=== PATIENT | female | born 1940 | race Caucasian/White ===

== ENCOUNTER 2020-03-30 12:37 | Outpatient (CLI) | payer MEDICARE, BC ==
[~2020-03-30] VITALS: Ht 182.9 cm; Wt 63.5 kg
[2020-03-30 13:11] LABS: TOTAL HEMOGLOBIN 14.7 G/dl (12.0-16.0)
[2020-03-30] MEDS ORDERED: albuterol 2.5 MG/3 ML nebule NEB ONE (13:20)
== END 2020-03-30 23:59 | disposition home or self-care (01) ==
LOC: RT 12:37
PROVIDERS: ATTEND Internal Medicine Pulmonary Disease
DX: J44.9 Chronic obstructive pulmonary disease, unspecified (principal); R05 Cough
CPT/HCPCS: 85018; 94060; 94727; 94729; 94760

== ENCOUNTER 2023-05-24 11:46 | Day surgery (SDC) | payer MEDICARE, BC ==
[~2023-05-24] VITALS: Ht 152.4 cm; Wt 47.5 kg
[2023-05-24] VITALS (15 sets, daily range): BP systolic 109–176; BP diastolic 46–102; PULSE 58–87; RESP 15–20; TEMP 97.9; O2SAT 92–98
[~2023-05-24 11:46] MED LIST: LIDOCAINE 4% (40MG/ML) topical solution 50ml **BRONCH ONLY ONE; epiNEPHrine 1 MG/ML 1 ml ampule **BRONCH ONLY ONE; lidocaine 2% viscous 15 ML cup ***bronch room only MM ONE; phenylephrine 1% Nasal spray (extra-strength) 15 ML bottle **bronch room NS ONE
[2023-05-24] MEDS ORDERED: CELE200C PO (12:38)
[2023-05-24] MEDS ORDERED: AMIT25TA10 PO (12:38)
[2023-05-24] MEDS ORDERED: LEVO125T PO (12:38)
[2023-05-24] MEDS ORDERED: AMLO5TAB PO (12:38)
[2023-05-24] MEDS ORDERED: DOXE10CA2 PO (12:38)
[2023-05-24] MEDS ORDERED: TRAZ-256 PO (12:38)
[2023-05-24] MEDS ORDERED: THEO300T10 PO (12:38)
[2023-05-24] MEDS ORDERED: OMEP40CA21 PO (12:38)
[2023-05-24] MEDS ORDERED: GUAI600T45 PO (12:38)
[2023-05-24] MEDS ORDERED: PROP160C35 PO (12:38)
[2023-05-24] MEDS ORDERED: LOSA100T58 PO (12:38)
[2023-05-24] MEDS ORDERED: ATOR-2 PO (12:38)
[2023-05-24] MEDS ORDERED: epiNEPHrine 1 mg/ml inj IR PRN (12:50)
[2023-05-24] MEDS ORDERED: LIDOcaine 4% (40 mg/ml) topical solution 50ml INH ONE (12:50)
[2023-05-24] MEDS ORDERED: LIDOcaine 4% (40 mg/ml) topical solution 50ml MM ONE (12:50)
[2023-05-24] MEDS ORDERED: LIDOcaine Viscous 15ml cup MM ONE (12:50)
[2023-05-24] MEDS ORDERED: phenylephrine 1% (X-tra strg) 15ml nasal spray NS ONE (12:50)
[2023-05-24] MEDS ORDERED: fentaNYL/PF 50MCG/1 ML 2ML syringe IV PRN (13:45)
[2023-05-24] MEDS ORDERED: MIDAZolam 1 MG/ML 5ML VIAL IV PRN (13:45)
== END 2023-05-24 16:05 ==
LOC: SSTAY O 11:46
PROVIDERS: ATTEND Internal Medicine Critical Care Medicine
DX: R22.2 Localized swelling, mass and lump, trunk (principal); J47.9 Bronchiectasis, uncomplicated; J43.9 Emphysema, unspecified
CPT/HCPCS: 31624; 31653; 71045; 87015; 87070; 87077; 87102; 87116; 87186; 87206; 94760; J2250; J3010; J7030; 31622; 31628; 31652; A4620; J0171

== ENCOUNTER 2024-08-26 12:39 | Outpatient (CLI) | payer MEDICARE, BC ==
[~2024-08-26] VITALS: Ht 152.4 cm; Wt 47.6 kg
[~2024-08-26 12:39] MED LIST changes: +ALB0.5UD NEB; +ALEN70TA60 PO; +AMIT25TA10 PO; +AMLO5TAB PO; +ATOR-2 PO; +BUDE10.27 PO; +CELE200C PO; +DOXE10CA2 PO; +LACT1CAP26 PO; +LACT1CAP65 PO; +LEVO125T PO; -LIDOCAINE 4% (40MG/ML) topical solution 50ml **BRONCH ONLY ONE; +LOSA100T58 PO; +MELA10TA2 PO; +OMEP40CA21 PO; +PROP160C35 PO; +TRAZ-256 PO; -epiNEPHrine 1 MG/ML 1 ml ampule **BRONCH ONLY ONE; -lidocaine 2% viscous 15 ML cup ***bronch room only MM ONE; -phenylephrine 1% Nasal spray (extra-strength) 15 ML bottle **bronch room NS ONE
[2024-08-26] MEDS ORDERED: albuterol 2.5 MG/3 ML nebule NEB ONE (13:20)
[2024-08-26 14:14] VITALS: PULSE 66; RESP 16; O2SAT 94
== END 2024-08-26 23:59 | disposition home or self-care (01) ==
LOC: RT 12:39
PROVIDERS: ATTEND Internal Medicine
DX: J44.9 Chronic obstructive pulmonary disease, unspecified (principal); Z90.2 Acquired absence of lung [part of]; I10 Essential (primary) hypertension; E78.5 Hyperlipidemia, unspecified; E03.9 Hypothyroidism, unspecified; R73.01 Impaired fasting glucose
CPT/HCPCS: 94010; 94727; 94729; 94760